=== PATIENT | male | born 1955 | race Caucasian/White ===

== ENCOUNTER → 2016-05-08 | Outpatient (CLI) | payer BC ==
[~2016-05-08] MED LIST: ADVIN25/60 INH; ALBUAER2 INH; ASPI1TAB83 PO; CHOL100027 PO; LORA10TA5 PO; MULT-506 PO; PARO1TAB27 PO; RANI150T3 PO; SIMV20TA2 PO
--- NOTE | 2016-05-08 08:49 | DIAGNOSTIC IMAGING REPORT ---
LEFT KNEE 1 OR 2 VIEWS ROUTINE, RIGHT KNEE 1 OR 2 VIEWS ROUTINE CLINICAL HISTORY: Bilateral knee pain. COMPARISON STUDY: None. FINDINGS: No fracture or dislocation within the right or left knee. Soft tissues are unremarkable. No knee effusion. Cartilage spaces are maintained. IMPRESSION: No significant abnormality within the right or left knee. Electronically signed by: Waylon Villagomez M.D. 05/08/2016 8:47 AM Dictated Date/Time: 05/08/2016 8:46 AM
--- NOTE | 2016-05-08 09:00 | DIAGNOSTIC IMAGING REPORT ---
CHEST 2 VIEWS ROUTINE CLINICAL HISTORY: R05 [id number] COMPARISON STUDY: No previous studies for comparison. FINDINGS: The cardiac and mediastinal contours are normal. There is no evidence of focal pulmonary consolidation. There is no evidence of failure. No pleural effusions are visualized.[ IMPRESSION: No active disease in the chest. Electronically signed by: Ernesto Petersen M.D. 05/08/2016 8:59 AM Dictated Date/Time: 05/08/2016 8:53 AM
== END | disposition home or self-care (01) ==
LOC: C.RAD 08:22
PROVIDERS: ATTEND Internal Medicine
DX: R05 Cough (principal); R73.01 Impaired fasting glucose

== ENCOUNTER → 2016-06-30 | Outpatient (CLI) | payer BC ==
--- NOTE | 2016-06-30 10:19 | DIAGNOSTIC IMAGING REPORT ---
CHEST CT WITHOUT CONTRAST CT DOSE: 390.08 mGy.cm HISTORY: Follow up hilar adenopathy. Follow-up pulmonary nodules. TECHNIQUE: Multiaxial CT images of the chest were performed without contrast. COMPARISON: Chest CT 12/30/2015. FINDINGS: No pleural effusions. No pneumothorax. A few partially opacified left lower lobe segmental and subsegmental bronchi. Small clustered nodules seen within the right upper lobe on image 83 and within the right lower lobe are not simply changed. Dominant nodular density on image 194 measures 6 mm. No new pulmonary nodules are identified. The majority of these nodules demonstrate a tree-in-bud distribution. Prominent mediastinal lymph nodes remain stable. Normal caliber thoracic aorta. The heart is normal in size. The unenhanced liver, spleen, and adrenal glands are unremarkable. Right upper lobe groundglass nodule has resolved. 8 mm nodular density within the right upper lobe could be due to a confluence of vessels. This remains unchanged. IMPRESSION: 1. Interval resolution of the 1.2 cm right upper lobe groundglass nodule. 2. No change in the small nodular densities within the right upper lobe and right lower lobe. These demonstrate a tree-in-bud distribution and are suggestive of a chronic infectious bronchiolitis. Six-month chest CT follow is recommended to ensure stability. 3. Stable prominent mediastinal lymph nodes. 4. Stable 8 mm nodular density within the right upper lobe which is likely due to a confluence of vessels. Electronically signed by: Waylon Villagomez M.D. 06/30/2016 10:18 AM Dictated Date/Time: 06/30/2016 10:05 AM
== END | disposition home or self-care (01) ==
LOC: C.CTS 09:51
PROVIDERS: ATTEND Internal Medicine
DX: R59.0 Localized enlarged lymph nodes (principal)

== ENCOUNTER → 2016-07-18 | Outpatient (CLI) | payer BC ==
[2016-07-18 13:23] LABS: IMMUNOGLOBULN M 87.7 mg/dL (40-230)
[2016-07-19 18:14] LABS: IMMUNOGLOBULIN E TC 24620E 1435 KU/L (<115)
== END | disposition home or self-care (01) ==
LOC: C.LAB1850 11:45
PROVIDERS: ATTEND Internal Medicine
DX: J45.909 Unspecified asthma, uncomplicated (principal); R59.0 Localized enlarged lymph nodes

== ENCOUNTER → 2016-07-25 | Outpatient (CLI) | payer BC ==
--- NOTE | 2016-07-25 14:39 | DIAGNOSTIC IMAGING REPORT ---
CT SCAN OF THE PARANASAL SINUSES CLINICAL HISTORY: Chronic sinusitis. COMPARISON STUDY: CT of the brain dated 11/08/2007. TECHNIQUE: High-resolution CT scan of the paranasal sinuses is performed. Images are reviewed in the axial, sagittal, and coronal planes. IV contrast was not administered for this examination. CT DOSE: 662.91 mGy.cm FINDINGS: Maxillary antra: There is mild to moderate mucosal thickening bilaterally with air-fluid levels. Anterior ethmoid sinuses: Moderate mucosal thickening is seen bilaterally. Posterior ethmoid sinuses: Subtotally opacified on the right. Mild to moderate mucosal thickening is seen on the left. Sphenoid sinuses: There is mild mucosal thickening with air-fluid levels identified. Frontal sinuses: Trace mucosal thickening is seen bilaterally. Ostiomeatal complexes: Patent but narrowed by mucosal thickening. Frontoethmoidal and sphenoethmoidal recesses: The right frontoethmoidal recess is patent. The left frontoethmoidal recess appears occluded. The sphenoethmoidal recesses appear patent but are narrowed by mucosal thickening. Carotid arteries: The carotid arteries are protuberant but covered and without septal attachments. Ethmoid roofs: The ethmoid roofs are symmetric. Nasal turbinates: Normal in appearance. Nasal septum: There is mild left leftward deviation of the bony nasal septum noting a small spur. Optic nerves: Covered. Orbits: The bony orbits are intact. Orbital contents are normal in appearance. Calvarium: The imaged calvarium is normal in appearance Mastoid air cells: Well pneumatized. Brain parenchyma: Partially visualized brain parenchyma is within normal limits. IMPRESSION: Findings pansinusitis as above. Electronically signed by: Michael Fine M.D. 07/25/2016 2:38 PM Dictated Date/Time: 07/25/2016 2:34 PM
== END | disposition home or self-care (01) ==
LOC: C.CTS 13:46
PROVIDERS: ATTEND Internal Medicine Pulmonary Disease
DX: J32.9 Chronic sinusitis, unspecified (principal)

== ENCOUNTER → 2016-12-06 | Outpatient (CLI) | payer BC ==
[2016-12-06 17:17] LABS: BASO % 0.7 %; BASO ABS # 0.04 K/uL (0-0.2); COMPLETE YES; EOS % 4.7 %; HEMATOCRIT 46.4 % (42-52); IG% 0.2 %; LYMPH ABS # 1.72 K/uL (1.2-3.4); MEAN CELL VOLUME 88.4 fL (80-100); MEAN CORPUSCULAR HGB CONC 35.1 g/dl (32-36); MEAN PLATELET VOLUME 10.4 fL (7.4-10.4); MONO % 6.4 %; PLATELET COUNT 223 K/uL (130-400); RED BLOOD COUNT 5.25 M/uL (4.7-6.1); WHITE BLOOD COUNT 6.14 K/uL (4.8-10.8)
[2016-12-06 17:32] LABS: ALT/SGPT 26 U/L (12-78); AST/SGOT 16 U/L (15-37); BLOOD UREA NITROGEN 14 mg/dl (7-18); BUN/CREATININE RATIO 13.8 (10-20); CARBON DIOXIDE 27 mmol/L (21-32); CHLORIDE 108 mmol/L (98-107); GLUCOSE 91 mg/dl (70-99); SODIUM 142 mmol/L (136-145)
[2016-12-06 17:45] LABS: ALB/GLOB RATIO 1.1 (0.9-2); ALKALINE PHOSPHATASE 88 U/L (45-117)
== END | disposition home or self-care (01) ==
LOC: C.LABBC 15:13
PROVIDERS: ATTEND Internal Medicine
DX: F43.20 Adjustment disorder, unspecified (principal); E78.5 Hyperlipidemia, unspecified

== ENCOUNTER → 2016-12-12 | Outpatient (CLI) | payer BC ==
--- NOTE | 2016-12-12 12:56 | DIAGNOSTIC IMAGING REPORT ---
CT OF THE CHEST WITHOUT IV CONTRAST CLINICAL HISTORY: Hilar adenopathy. COMPARISON STUDY: Chest CTs August 18, 2010 and June 30, 2016. CT DOSE: 316.63 mGy.cm TECHNIQUE: Axial images of the chest were obtained without IV contrast. Images were reviewed in the axial, sagittal, and coronal planes. IV contrast was not administered for this examination. A dose lowering technique was utilized adhering to the principles of ALARA. FINDINGS: No enlarged axillary, mediastinal or hilar lymph nodes are present. Mediastinal lymphadenopathy has resolved since prior exam. The size of the heart is normal. There is no pericardial effusion. No pneumothorax or pleural effusion is present. Scattered tree-in-bud nodules within the right upper and right lower lobes are noted. The largest right lower lobe nodule measures approximately 5 mm. This has decreased in size since prior exam of June 30, 2016. No consolidation is present. The bony thorax is unremarkable. Upper abdomen is unremarkable. IMPRESSION: 1. No thoracic lymphadenopathy. Interval decrease in size mediastinal lymph nodes since exam of June 30, 2016. 2. Slight improvement in scattered tree-in-bud nodules within the right lung suggestive of a chronic infectious bronchiolitis/mucoid impaction. 3. No suspicious pulmonary nodules. Electronically signed by: Rufino Miller M.D. 12/12/2016 12:54 PM Dictated Date/Time: 12/12/2016 11:40 AM
== END | disposition home or self-care (01) ==
LOC: C.CTS 11:19
PROVIDERS: ATTEND Internal Medicine
DX: R59.0 Localized enlarged lymph nodes (principal)

== ENCOUNTER → 2017-06-22 | Outpatient (CLI) | payer OTHER ==
[~2017-06-22] MED LIST changes: -LORA10TA5 PO; +LORA10TA6 PO
--- NOTE | 2017-06-22 09:59 | DIAGNOSTIC IMAGING REPORT ---
(CHEST) THORAX WITHOUT CT DOSE: 316.26 mGy.cm HISTORY: R91.8 Multiple lung nodules TECHNIQUE: Multiaxial CT images of the chest were performed without contrast. A dose lowering technique was utilized adhering to the principles of ALARA. COMPARISON: Chest CT 12/12/2016. FINDINGS: The central airways are patent. No pleural effusions. No pneumothorax. Punctate calcified granuloma within the left lower lobe. Stable to slight progression of the scattered tree-in-bud nodules seen throughout the lungs. The majority of the subcentimeter subpleural nodules remain stable. Dominant subpleural nodule within the right middle lobe on image 171 measures 5 mm. This previously measured 4 mm on a 2011 study. Focal groundglass nodular density on image 79 has slightly progressed. This currently measures 6 mm. However, this favors mild inflammatory/infectious change. No suspicious lytic or blastic osseous lesions. No hilar lymphadenopathy. Normal caliber thoracic aorta. Stable mediastinal lymph nodes. The heart is normal in size. The visualized liver, spleen, and adrenal glands are unremarkable. IMPRESSION: 1. Stable to slight progression of the scattered subcentimeter nodules. The majority of the nodules demonstrate a tree-in-bud pattern and therefore favor inflammatory/infectious change. 2. No suspicious nodules. However, one year chest CT follow up can be performed to ensure stability/resolution. 3. Stable mediastinal lymph nodes. Electronically signed by: Waylon Villagomez M.D. 06/22/2017 9:57 AM Dictated Date/Time: 06/22/2017 9:46 AM
== END | disposition home or self-care (01) ==
LOC: C.CTS 09:24
PROVIDERS: ATTEND Internal Medicine Pulmonary Disease
DX: R91.8 Other nonspecific abnormal finding of lung field (principal)